=== PATIENT | female | born 1965 | race Caucasian/White ===

== ENCOUNTER 2020-02-03 13:58 | Outpatient (CLI) | payer BC, SELFPAY ==
--- NOTE | ~2020-02-03 | MM_ITS ---
EXAMINATION: MM screening reno BI w ludin HISTORY: Screening TECHNIQUE: Craniocaudal and mediolateral oblique 3-D tomosynthesis images were obtained and synthetic 2-D images were generated. CAD analysis was submitted and interpreted. COMPARISON: Comparison to multiple prior studies sequentially, with oldest reviewed study dated 12/22. BREAST PARENCHYMAL COMPOSITION: There are scattered areas of fibroglandular density. FINDINGS: There is distortion of both breasts, consistent with previous breast reduction surgery. The re is no evidence of suspicious mass, calcification, or architectural distortion to suggest malignanc y in either breast. There has been no suspicious interval change. IMPRESSION: 1. No mammographic evidence of malignancy. 2. Recommend routine screening mammography in one year. BI-RADS Category 1: Negative Reviewed, dictated and finalized at location A.
== END 2020-02-03 13:59 | disposition home or self-care (01) ==
PROVIDERS: PCP Family Medicine; Visit Provider Family Medicine
DX: Z12.31 Encounter for screening mammogram for malignant neoplasm of breast (principal)
CPT/HCPCS: 77063; 77067

== ENCOUNTER → 2020-06-30 14:40 | Outpatient (CLI) | payer BC, SELFPAY ==
--- NOTE | ~2020-06-30 | US_ITS ---
EXAMINATION: US transvaginal EXAM DATE: 06/30/2020 15:10 INDICATION: Postmenopausal bleeding. TECHNIQUE: Pelvic transvaginal sonogram was performed. There are multiple grayscale and Doppler imag es available for interpretation. Comparison is made to prior examination from 01/08/2019. FINDINGS: Uterus measures 8.2 x 5.0 x 5.1 cm, with complex follicle anterior myometrial region likel y fibroid measuring 3.5 cm. Endometrial stripe measures about 8 mm which is mildly thickened for post menopausal status, is being somewhat obscured by the fibroid. There is a proteinaceous nabothian cyst . There is no free pelvic fluid. Can't definitively identify the ovaries. IMPRESSION: Endometrium measuring about 8 mm, similar in appearance to the previous exam. Could be hy perplasia, polyp or endometrial cancer. Fibroid. Nabothian cysts. Reviewed, dictated and finalized at location A. [facility] IMPRESSION: Endometrium measuring about 8 mm, similar in appearance to the prev ious exam. Could be hyperplasia, polyp or endometrial cancer. Fibroid. Nabothia n cysts.
== END ==
PROVIDERS: PCP Family Medicine; Visit Provider Nurse Practitioner
DX: N95.0 Postmenopausal bleeding (principal); D25.9 Leiomyoma of uterus, unspecified
CPT/HCPCS: 76830

== ENCOUNTER 2021-02-04 15:04 | Outpatient (CLI) | payer BC, SELFPAY ==
--- NOTE | ~2021-02-04 | MM_ITS ---
EXAMINATION: MM screening [facility] BI w ludin HISTORY: Screening mammogram TECHNIQUE: Craniocaudal and mediolateral oblique 3-D tomosynthesis images were obtained and synthetic 2-D images were generated. CAD analysis was submitted and interpreted. COMPARISON: 02/03/2020, 01/14/2019, 01/11/2018 BREAST PARENCHYMAL COMPOSITION: There are scattered areas of fibroglandular density. FINDINGS: There is no evidence of suspicious mass, calcification, or architectural distortion to sugg est malignancy in either breast. There has been no suspicious interval change. IMPRESSION: 1. No mammographic evidence of malignancy. 2. Recommend routine screening mammography in one year. BI-RADS Category 1: Negative Reviewed, dictated and finalized at location A.
== END 2021-02-04 15:05 | disposition home or self-care (01) ==
LOC: ANHIMG 15:08
PROVIDERS: PCP Family Medicine; Visit Provider Obstetrics & Gynecology Gynecology
DX: Z12.31 Encounter for screening mammogram for malignant neoplasm of breast (principal)
CPT/HCPCS: 77063; 77067

== ENCOUNTER 2021-09-02 01:17 | Day surgery (SDC) | payer BC, SELFPAY ==
[2021-08-25 15:39] VITALS: BMI 28.5
--- NOTE | 2021-09-01 13:06 | PM.HPGS ---
History of Present Illness History of Present Illness Consent: Risks, benefits, and alternatives have been discussed and questions answered. Patient agrees to proceed with procedure. Chief complaint: neoplasm screening, hx of colon polyps Narrative: Susy Calabrese is a 56 year old female here for colon cancer screening. She did have 1 polyp removed about 5 years ago Review of Systems Review of Systems: All systems reviewed & are unremarkable except as noted in HPI and below PMFSH Past Medical History Medical History JULIA (generalized anxiety disorder) Gynecomastia, female Hyperlipidemia Surgical History Surgical History Hx of breast reduction, elective Family History Family History Father Family history of mental disorder Depression Hypertension Cerebrovascular accident, Onset Age: 67 Family history of diabetes mellitus in first degree relative Family history of elevated blood lipids Patient's father is Mother Family history of mental disorder Patient's mother is Sibling Hypertension Family history of eczema Family history of allergic disorder Patient's brother is in good health Grandparent Family history of malignant neoplasm of brain, Onset Age: 57 Family history of malignant neoplasm of breast, Onset Age: 72 Diabetes mellitus Family history of mental disorder Other Family history of attention deficit hyperactivity disorder (ADHD) Family history of migraine headaches Social History Social History Social History: Smoking status: Never smoker Second hand tobacco smoke exposure: No Alcohol intake: current Alcohol use details: rarely Substance use: never Substance use type: does not use Living arrangements: with family Gender identity (if verbalized by the patient): Female Sexual Orientation (if Verbalized by the Patient): Straight or Heterosexual Spiritual care concerns: No Meds Home Medications and Allergies Home Medications Medication Instructions Recorded Confirmed Type montelukast 10 mg tablet 10 mg PO QPM #90 tablet 11/12/20 08/26/21 Rx rosuvastatin 5 mg tablet 5 mg PO DAILY #90 tablet 11/12/20 08/26/21 Rx fluoxetine 20 mg capsule 40 mg PO DAILY #180 cap 05/12/21 08/26/21 Rx hydroxyzine HCl 25 mg tablet 25 mg PO BID PRN #30 tablet 05/12/21 08/26/21 Rx Calcium + D 1 cap PO DAILY 08/25/21 08/26/21 History cholecalciferol (vitamin D3) 125 mcg PO DAILY 08/25/21 08/26/21 History [Vitamin D3] estradiol 10 mcg VAGINAL 2XW 08/25/21 08/26/21 History fexofenadine [Kellee Allergy] 180 mg PO DAILY 08/25/21 08/26/21 History vitamin B complex [B Complex] 1 cap PO DAILY 08/25/21 08/26/21 History Allergies Allergy/AdvReac Type Severity Reaction Status Date / Time Sulfa (Sulfonamide Allergy Intermediate Hives Verified 09/02/21 06:23 Antibiotics) sulfanilamide Allergy Intermediate Hives Verified 09/02/21 06:23 Exam Const: General: alert Orientation/consciousness: patient oriented x3 Resp: Auscultation: clear to auscultation bilaterally Cardio: Rhythm: regular rhythm GI: GI Palp: Yes Soft to palpation and No Tenderness to palpation present (GI) Neuro: General: patient oriented x3 Assessment and Plan Assessment and plan (1) Colon cancer screening: Code(s): Z12.11 - Encounter for screening for malignant neoplasm of colon Status: Acute Assessment and Plan: Colonoscopy with possible biopsy or polypectomy or cautery or injection of substances.
[2021-09-02 06:23] VITALS: BP 107/60; PULSE 65; RESP 16; TEMP 36.4; O2SAT 100
[2021-09-02] MEDS: LACTATED RINGERS 1,000 ML 150 ML IV CONT (06:39)
--- NOTE | 2021-09-02 07:12 | WPDANESEPPF ---
Anes - Initial Pre Proc Eval Procedure: Operation Date: 09/02/21 07:30 Proposed Procedures p Screening Colonoscopy - Lowell Lao MD Date/Time: 09/02/21 07:12 Surgeon: Lowell Lao MD Pre Op Diagnosis: neoplasm screening, hx of colon polyps Patient Data Age: 56 Gender: F Height: 1.6 m Weight: 73 kg Last Vital Signs Temp 97.5 F L 09/02/21 06:23 Pulse 65 09/02/21 06:23 Resp 16 09/02/21 06:23 BP 107/60 09/02/21 06:23 Pulse Ox 100 09/02/21 06:23 Allergies Allergy/AdvReac Type Severity Reaction Status Date / Time Sulfa (Sulfonamide Allergy Intermediate Hives Verified 09/02/21 06:23 Antibiotics) sulfanilamide Allergy Intermediate Hives Verified 09/02/21 06:23 Home Medications Medication Instructions Recorded Confirmed Type montelukast 10 mg tablet 10 mg PO QPM #90 tablet 11/12/20 08/26/21 Rx rosuvastatin 5 mg tablet 5 mg PO DAILY #90 tablet 11/12/20 08/26/21 Rx fluoxetine 20 mg capsule 40 mg PO DAILY #180 cap 05/12/21 08/26/21 Rx hydroxyzine HCl 25 mg tablet 25 mg PO BID PRN #30 tablet 05/12/21 08/26/21 Rx Calcium + D 1 cap PO DAILY 08/25/21 08/26/21 History cholecalciferol (vitamin D3) 125 mcg PO DAILY 08/25/21 08/26/21 History [Vitamin D3] estradiol 10 mcg VAGINAL 2XW 08/25/21 08/26/21 History fexofenadine [Kellee Allergy] 180 mg PO DAILY 08/25/21 08/26/21 History vitamin B complex [B Complex] 1 cap PO DAILY 08/25/21 08/26/21 History Patient hx anesthesia problems: none Family hx anesthesia problems: none Results Review: All pre-operative results and documents have been reviewed as part of the pre-operative evaluation. [facility] Past Medical History Medical History JULIA (generalized anxiety disorder) Gynecomastia, female Hyperlipidemia Surgical History Surgical History Hx of breast reduction, elective Family History Family History Father Family history of mental disorder Depression Hypertension Cerebrovascular accident, Onset Age: 67 Family history of diabetes mellitus in first degree relative Family history of elevated blood lipids Patient's father is Mother Family history of mental disorder Patient's mother is Sibling Hypertension Family history of eczema Family history of allergic disorder Patient's brother is in good health Grandparent Family history of malignant neoplasm of brain, Onset Age: 57 Family history of malignant neoplasm of breast, Onset Age: 72 Diabetes mellitus Family history of mental disorder Other Family history of attention deficit hyperactivity disorder (ADHD) Family history of migraine headaches Social History Social History (Updated 08/26/21 @ 13:57 by Lissa Duron) Social History: Smoking status: Never smoker Second hand tobacco smoke exposure: No Alcohol intake: current Alcohol use details: rarely Substance use: never Substance use type: does not use Living arrangements: with family Gender identity (if verbalized by the patient): Female Sexual Orientation (if Verbalized by the Patient): Straight or Heterosexual Spiritual care concerns: No Anes - Eval Final PreProcedure Day of Procedure 09/02/21 07:12 Patient weight: normal Heart: regular rate and rhythm Lungs: clear to auscultation Airway: Mallampati scale class II Neurological: alert and oriented Last oral intake: >/= 8 hours ASA classification: II Emergent: no Anesthetic plan: proceed Anesthesia type and monitoring: general GIVS and standard monitoring Results Review: All pre-operative results and documents have been reviewed as part of the pre-operative evaluation. Informed Consent: The patient's anesthetic plan and its attendant risks and benefits were discussed with the patient/family/POA. Questions were rosa m
[2021-09-02 07:45] VITALS: BP 91/54; PULSE 65; RESP 16; O2SAT 98
[2021-09-02 07:55] VITALS: BP 92/58; PULSE 56; RESP 16; O2SAT 98
[2021-09-02 08:05] VITALS: BP 108/66; PULSE 54; RESP 14; O2SAT 98
== END 2021-09-02 08:12 | disposition home or self-care (01) ==
PROVIDERS: PCP Family Medicine; Visit Provider Internal Medicine Gastroenterology
PROC: 0DJD8ZZ Inspection of Lower Intestinal Tract, Via Natural or Artificial Opening Endoscopic (ICD-10-PCS; CPT 45378; principal; 2021-09-02 07:30)
DX: Z12.11 Encounter for screening for malignant neoplasm of colon (principal); E78.5 Hyperlipidemia, unspecified; F41.1 Generalized anxiety disorder; Z86.010 Personal history of colon polyps
CPT/HCPCS: 45378; J2001; J2704; J7120

== ENCOUNTER 2021-09-08 14:09 | Outpatient (CLI) | payer BC, SELFPAY ==
--- NOTE | ~2021-09-08 | MMUS_ITS ---
EXAMINATION: MM diagnostic reno LT w ludin, US breast LT limited HISTORY: Pain of the lower inner left breast TECHNIQUE: Craniocaudal, mediolateral, and mediolateral oblique 3-D tomosynthesis images of the left breast were performed and synthetic 2-D images were generated. CAD analysis was submitted and interpr eted. High resolution limited left breast ultrasound was performed. COMPARISON: 02/04/2021, 02/03/2020, 01/14/2019 BREAST PARENCHYMAL COMPOSITION: There are scattered areas of fibroglandular density. FINDINGS: MAMMOGRAPHIC FINDINGS: There is no suspicious mass, calcification, or architectural distortion to suggest malignancy. There has been no suspicious interval change. No mammographic correlate is identified for the patient's re ported left breast pain. ULTRASOUND: There are cysts at 8:00 and 9:00 locations near the nipple measuring up to 6 mm. No correlate is iden tified for the patient's left breast pain. IMPRESSION: 1. No specific mammographic or sonographic correlate is identified for the patient's left breast pain . Further evaluation at this time should be based on clinical assessment. Continued follow-up physica l examination is recommended. 2. Routine screening mammography is recommended. BI-RADS Category 2: Benign finding(s). Reviewed, dictated and finalized at location A. IMPRESSION: 1. No specific mammographic or sonographic correlate is identified for the brittny ent's left breast pain. Further evaluation at this time should be based on clin ical assessment. Continued follow-up physical examination is recommended. 2. Routine screening mammography is recommended. BI-RADS Category 2: Benign finding(s).
== END 2021-09-08 14:10 | disposition home or self-care (01) ==
PROVIDERS: PCP Family Medicine; Visit Provider Nurse Practitioner Gerontology
DX: N63.0 Unspecified lump in unspecified breast (principal)
CPT/HCPCS: 76642; 77061; 77065; G0279

== ENCOUNTER 2021-09-14 13:51 | Outpatient (CLI) | payer BC, SELFPAY ==
--- NOTE | ~2021-09-14 | XR_ITS ---
EXAMINATION: XR chest 2V 09/14/2021 14:06 INDICATION: Chest pain. PROCEDURE: 2 view chest COMPARISON: No prior studies for comparison. FINDINGS: The lungs are clear. The cardiomediastinal silhouette is within normal limits. There are no pleural effusions. There is no pneumothorax suspected. IMPRESSION: 1: NO ACUTE CARDIOPULMONARY DISEASE. Reviewed, dictated and finalized at location A.
== END 2021-09-14 13:52 | disposition home or self-care (01) ==
LOC: ANHIMG 13:54
PROVIDERS: PCP Family Medicine; Visit Provider Nurse Practitioner Gerontology
DX: N64.4 Mastodynia (principal)
CPT/HCPCS: 71046

== ENCOUNTER 2022-03-24 14:56 | Outpatient (CLI) | payer BC, SELFPAY ==
--- NOTE | ~2022-03-24 | MM_ITS ---
EXAMINATION: MM screening [facility] BI w ludin HISTORY: Screening mammogram TECHNIQUE: Craniocaudal and mediolateral oblique 3-D tomosynthesis images were obtained and synthetic 2-D images were generated. CAD analysis was submitted and interpreted. COMPARISON: 09/08/2021 bilateral mammogram BREAST PARENCHYMAL COMPOSITION: There are scattered areas of fibroglandular density. FINDINGS: Stable fibroglandular asymmetry consistent with previous bilateral breast reduction surgery . Low-density circumscribed approximately 4.9 mm opacity is noted at mid depth in the upper outer left breast, with halo sign, likely a small cyst. This is new since 09/08/2021. Targeted upper outer quadra nt left breast ultrasound examination is recommended to confirm suspected benign lesion. Otherwise there is no evidence of suspicious mass, calcification, or interval architectural distortio n to suggest malignancy in either breast. There has been no other suspicious interval change. IMPRESSION: 1. Status post bilateral reduction mammoplasty. 2. Targeted upper outer quadrant left breast ultrasound is recommended for probable 4.9 mm benign les ion, likely a cyst BI-RADS Category 0: Incomplete: Needs additional imaging evaluation. Reviewed, dictated and finalized at location A. IMPRESSION: 1. Status post bilateral reduction mammoplasty. 2. Targeted upper outer quadrant left breast ultrasound is recommended for prob able 4.9 mm benign lesion, likely a cyst BI-RADS Category 0: Incomplete: Needs additional imaging evaluation.
== END 2022-03-24 14:57 | disposition home or self-care (01) ==
LOC: ANHIMG 14:57
PROVIDERS: PCP Family Medicine; Visit Provider Obstetrics & Gynecology Gynecology
DX: Z12.31 Encounter for screening mammogram for malignant neoplasm of breast (principal); R92.8 Other abnormal and inconclusive findings on diagnostic imaging of breast
CPT/HCPCS: 77063; 77067

== ENCOUNTER 2022-03-30 14:59 | Outpatient (CLI) | payer BC, SELFPAY ==
--- NOTE | ~2022-03-30 | US_ITS ---
EXAMINATION: US breast LT limited HISTORY: Indeterminate left breast mass on screening mammogram TECHNIQUE: Limited left breast ultrasound performed. FINDINGS: There is a 5 mm x 4 mm cyst at the 3:00 location 6 cm from the nipple in the left breast co rresponding to the mammographic finding in question. No suspicious cystic or solid mass is identified . IMPRESSION: Left breast cyst. Routine screening mammography is recommended. BI-RADS Category 2: Benign finding(s). Reviewed, dictated and finalized at location A.
== END 2022-03-30 15:00 | disposition home or self-care (01) ==
LOC: ANHIMG 15:01
PROVIDERS: PCP Family Medicine; Visit Provider Obstetrics & Gynecology Gynecology
DX: R92.8 Other abnormal and inconclusive findings on diagnostic imaging of breast (principal); N60.02 Solitary cyst of left breast
CPT/HCPCS: 76642

== ENCOUNTER 2022-08-03 10:34 | Emergency (ER) | payer BC, SELFPAY ==
--- NOTE | ~2022-08-03 | XR_ITS ---
EXAMINATION: XR foot LT min 3V DATE: 08/03/2022 10:59 INDICATION: Left foot pain. Injury. TECHNIQUE: 4 views of left foot were obtained. COMPARISON: None. FINDINGS: Bone alignment is normal. No fracture. There is mild osteoarthritis of first metatarsophala ngeal joint. There is an enthesophyte at plantar aspect of calcaneal tuberosity. IMPRESSION: 1. Mild osteoarthritis of first metatarsophalangeal joint. Reviewed, dictated and finalized at location A. [facility]
[2022-08-03 10:43] VITALS: BP 110/88; PULSE 85; RESP 16; TEMP 36.7; O2SAT 100
--- NOTE | 2022-08-03 10:43 | ED.LOWEXIN ---
HPI - Extremity Injury (Lower) General Chief Complaint: Extremity Injury, Lower Stated Complaint: lt foot injury Time Seen by Provider: 08/03/22 11:05 Source: patient and RN notes reviewed Mode of arrival: ambulatory Limitations: no limitations History of Present Illness HPI Narrative: 57-year-old female presents with concern for left foot pain. Reports today she missed a step and fell down the stairs twisting her foot. She reports weight-bearing is painful, pain is on the base of the foot. She reports pain at rest. She denies any intervention this morning. MD complaint: foot injury Related Data Home Medications Medication Instructions Recorded Confirmed Calcium + D 1 cap PO DAILY 08/25/21 07/16/22 cholecalciferol (vitamin D3) 125 125 mcg PO DAILY 08/25/21 07/16/22 mcg (5,000 unit) tablet (Vitamin D3) estradiol 10 mcg vaginal tablet 10 mcg vaginal 2XW 08/25/21 07/16/22 fexofenadine 180 mg tablet 180 mg PO DAILY 08/25/21 07/16/22 (Kellee Allergy) vitamin B complex 1 cap PO DAILY 08/25/21 07/16/22 Allergies Allergy/AdvReac Type Severity Reaction Status Date / Time Sulfa (Sulfonamide Allergy Intermediate Hives Verified 08/03/22 10:44 Antibiotics) sulfanilamide Allergy Intermediate Hives Verified 08/03/22 10:44 Review of Systems Review of Systems: CONSTITUTIONAL: Denies malaise, chills, sweats, or fever. SKIN: Denies rash or itching, open skin, laceration, abrasion, redness, warmth, swelling. MUSCULOSKELETAL: Reports left foot pain NEUROLOGIC: Denies numbness, weakness All systems reviewed & are unremarkable except as noted in HPI and below PMFSH Past Medical History Medical History JULIA (generalized anxiety disorder) Gynecomastia, female Hyperlipidemia MDD (major depressive disorder), recurrent episode, moderate Surgical History Surgical History Hx of breast reduction, elective Family History Family History Father Family history of mental disorder Depression Hypertension Cerebrovascular accident, Onset Age: 67 Family history of diabetes mellitus in first degree relative Family history of elevated blood lipids Patient's father is Mother Family history of mental disorder Patient's mother is Sibling Hypertension Family history of eczema Family history of allergic disorder Patient's brother is in good health Grandparent Family history of malignant neoplasm of brain, Onset Age: 57 Family history of malignant neoplasm of breast, Onset Age: 72 Diabetes mellitus Family history of mental disorder Other Family history of attention deficit hyperactivity disorder (ADHD) Family history of migraine headaches Social History Social History (Updated 07/13/22 @ 14:17 by Lissa Duron) Social History: Smoking status: Never smoker Second hand tobacco smoke exposure: No Alcohol intake: current Alcohol use details: rarely Substance use: never Substance use type: does not use Living arrangements: with family Occupation/Education: unemployed Gender identity (if verbalized by the patient): Female Sexual Orientation (if Verbalized by the Patient): Straight or Heterosexual Spiritual care concerns: No Comments At time of signature, agree with nursing past medical, surgical, social and family history. There is no relevant family history pertinent to the presenting complaint Exam Narrative: GENERAL: Well-appearing, well-nourished, and in no acute distress. HEAD: Normocephalic, atraumatic. EYES: PERRLA, conjunctivae clear NECK: Supple. CHEST: Speaks in full sentences. No respiratory distress. HEART: Regular rate and rhythm. Normal and equal peripheral pulses. EXTREMITIES: Left ankle, foot, digits have has normal strength and sensation, normal range of barb
== END 2022-08-03 11:20 | disposition home or self-care (01) ==
PROVIDERS: Emergency Provider Nurse Practitioner; PCP Family Medicine
DX: S93.602A Unspecified sprain of left foot, initial encounter (principal); W10.9XXA Fall (on) (from) unspecified stairs and steps, initial encounter; E78.5 Hyperlipidemia, unspecified
CPT/HCPCS: 73630; 99213; G0463

== ENCOUNTER 2023-01-03 11:11 | Outpatient (CLI) | payer BC, SELFPAY ==
--- NOTE | ~2023-01-03 | XR_ITS ---
Clinical Indication: Cough PA and lateral views of the chest: Comparison: 09/14/2021 Findings: The lungs are clear, without evidence of focal consolidation or pleural effusion. Cardiome diastinal silhouette is within normal limits. Bones and soft tissues are unremarkable. Impression: Normal chest. Reviewed, dictated and finalized at location . Impression: Normal chest.
== END 2023-01-03 11:12 | disposition home or self-care (01) ==
LOC: ANHIMG 11:15
PROVIDERS: PCP Family Medicine; Visit Provider Physician Assistant
DX: R05.9 Cough, unspecified (principal); R42 Dizziness and giddiness; E03.8 Other specified hypothyroidism
CPT/HCPCS: 71046

== ENCOUNTER 2023-04-18 14:10 | Outpatient (CLI) | payer BC, SELFPAY ==
--- NOTE | ~2023-04-18 | MM_ITS ---
EXAMINATION: MM screening [facility] BI w ludin HISTORY: Screening mammogram TECHNIQUE: Craniocaudal and mediolateral oblique 3-D tomosynthesis images were obtained and synthetic 2-D images were generated. CAD analysis was submitted and interpreted. COMPARISON: 03/30/2022 Limited left breast ultrasound 03/24/2022 bilateral screening mammogram examination 09/08/2021 diagnostic left mammogram and limited left breast ultrasound 02/21, 02/03/2020 bilateral screening mammogram examinations BREAST PARENCHYMAL COMPOSITION: There are scattered areas of fibroglandular density. FINDINGS: There is no evidence of suspicious mass, calcification, or architectural distortion to sugg est malignancy in either breast. There has been no suspicious interval change. IMPRESSION: 1. No mammographic evidence of malignancy. 2. Recommend routine screening mammography in one year. BI-RADS Category 1: Negative Reviewed, dictated and finalized at location A.
== END 2023-04-18 14:11 | disposition home or self-care (01) ==
LOC: ANHIMG 14:11
PROVIDERS: PCP Family Medicine; Visit Provider Obstetrics & Gynecology Gynecology
DX: Z12.31 Encounter for screening mammogram for malignant neoplasm of breast (principal)
CPT/HCPCS: 77063; 77067

== ENCOUNTER 2024-03-05 08:19 | Outpatient (CLI) | payer BC, SELFPAY ==
--- NOTE | ~2024-03-05 | DEXA_ITS ---
Bone Density Report Name: BLANCA WHIPPLE Age: 58 Sex: Female Ethnicity: White Date of : 1965 Indication: postmenopausal; screening for osteoporosis; Referring Provider: UNKNOWN, UNKNOWN Study: Bone densitometry was performed. Exam Date: March 05, 2024 Accession number: [id number] Bone Density: Region BMD T-score Z-score Classification AP Spine(L1-L4) 0.929 -1.1 0.2 Osteopenia Femoral Neck (Left) 0.774 -0.7 0.5 Normal Total Hip (Left) 0.989 0.4 1.2 Normal Femoral Neck (Right) 0.762 -0.8 0.4 Normal Total Hip (Right) 0.978 0.3 1.1 Normal Total Hip Mean 0.983 0.4 1.2 Normal World Health Organization criteria for BMD impression classify patients as: Normal (T-score at or above -1.0), Osteopenia (T-score between -1.0 and -2.5), or Osteoporosis (T-score at or below -2.5). 10-year Fracture Risk(1): Major Osteoporotic Fracture 6.0% Hip Fracture 0.2% Reported Risk Factors: [place] (), Neck BMD=0.762, BMI=31.4 (1) FRAX(R) Version 3.08. Fracture probability calculated for an untreated patient. Fracture probability may be lower if the patient has received treatment. Clinical Information Provided by Patient: Has used the following medications: Vitamin D, Calcium Patient maximum height was 63.0 Drinks caffeinated beverages Onset of menses at age 13 Number of children 3 Impression: The patient has low bone mass, based on the Total Spine T-score. The patient has an estimated ten-year risk of hip fracture of 0.2% and an estimated ten-year risk of major fracture of 6%, based on the WHO FRAX algorithm. Discussion: BONE DENSITY IS LOW AT ONE OR MORE SKELETAL SITES. This patient's lowest T-score is low at one or more skeletal sites. It meets the World Health Organization's (WHO) criteria for ?low bone mass? (T-score between -1.0 and -2.5). The patient's 10-year risk of fracture as calculated by FRAX is less than the threshold where pharmacological therapy is recommended by the National Osteoporosis Foundation (NOF). However, all treatment decisions require clinical judgment and consideration of individual patient factors, including patient preferences, comorbidities, previous drug use, risk factors not captured in the FRAX model (e.g., frailty, falls, vitamin D deficiency, increased bone turnover, interval significant decline in bone density) and possible under or overestimation of fracture risk by FRAX. The patient should follow a healthful lifestyle (good nutrition with adequate calcium and vitamin D, and appropriate weight-bearing exercise). Follow-Up: Consider repeating this study in 2 to 3 years to reassess this patient's status, or sooner if there is some new clinical indication. Reported by: TINA on 03/05/2024 8:56:00 AM.
== END 2024-03-05 08:20 | disposition home or self-care (01) ==
PROVIDERS: PCP Family Medicine
DX: Z78.0 Asymptomatic menopausal state (principal); Z13.820 Encounter for screening for osteoporosis; M85.88 Other specified disorders of bone density and structure, other site
CPT/HCPCS: 77080